=== PATIENT | female | born 1970 | race Caucasian/White ===

== ENCOUNTER 2018-05-19 19:06 | Emergency (ER) | payer OTHER ==
[2018-05-19] MEDS ORDERED: SODIUM CHLORIDE 1,000 ML IV STA (19:42)
[2018-05-19 19:43] VITALS: BMI 23.3
[2018-05-19] MEDS ORDERED: ONDANSETRON 4 MG/2 ML VIAL IVPUSH ONE (19:45)
--- NOTE | 2018-05-19 19:45 | PDOC ---
Rapid Medical Evaluation Chief Complaint: Pain, Acute Time Seen by Provider: 05/19/18 19:39 Medical Evaluation: Allergies Allergy/AdvReac Type Severity Reaction Status Date / Time No Known Allergies Allergy Verified 06/14/17 19:10 05/19/18 19:40 c/o RLQ pain x 3 days today pain is worse with nausea, diarrhea several episodes. PE: patient alert ox3. RLQ tenderness A: RLQ abdominal pain P: labs Patient to the ER for further management Discharge Disposition - Diagnosis Right lower quadrant abdominal pain - Referrals Referrals: Poonam Benedict MD [Primary Care Provider] - - Patient Instructions - Post Discharge Activity
--- NOTE | 2018-05-19 19:53 | PDOC ---
History of Present Illness - General Chief Complaint: Pain Stated Complaint: ABD PAIN Time Seen by Provider: 05/19/18 19:39 - History of Present Illness Initial Comments: 48 year old with no PMH presenting with diarrhea, right lower quadrant abdominal pain, and chills for the past three days. States that she has felt a twisting cramping right lower quadrant pain then began to have post-prandial pain with frequent watery stools. Denies fevers, but has had chills. Denies vomiting but has had some mild nausea. Her abdominal surgical history includes a hernia repair a few years prior. Denies any vaginal discharge, he,aturia, flank pain, or other symptoms. She denies any chest pain, cough, headache, recent travel, or other symptoms. 05/19/18 20:01 Past History - Past Medical History Allergies/Adverse Reactions: Allergies Allergy/AdvReac Type Severity Reaction Status Date / Time No Known Allergies Allergy Verified 06/14/17 19:10 Home Medications: Ambulatory Orders NK [No Known Home Medication] 06/14/17 COPD: No - Immunization History Immunization Up to Date: Yes - Suicide/Smoking/Psychosocial Hx Smoking History: Never smoked Hx Alcohol Use: No Substance Use Type: None Review of Systems - Review of Systems Constitutional: No: Chills, Diaphoresis, Fever HEENTM: No: Eye Pain, Blurred Vision, Tearing Respiratory: No: Cough, Shortness of Breath, SOB with Exertion, Wheezing Cardiac (ROS): No: Edema, Irregular Heart Rate ABD/GI: Yes: Diarrhea, Nausea, Vomiting : No: Dysuria, Discharge, Frequency Musculoskeletal: No: Joint Pain Integumentary: No: Bruising, Change in Color, Erythema, Flushing, Lesions Neurological: No: Headache, Numbness, Paresthesia, Tingling, Tremors, Weakness Psychiatric: No: Anxiety, Depression Hematologic/Lymphatic: No: Anemia, Blood Clots, Easy Bleeding *Physical Exam - Vital Signs Last Vital Signs Temp Pulse Resp BP Pulse Ox 98 F 61 18 126/78 100 05/19/18 19:40 05/19/18 19:40 05/19/18 19:40 05/19/18 19:40 05/19/18 19:40 - Physical Exam General Appearance: Yes: Nourished, Appropriately Dressed. No: Apparent Distress HEENT: positive: EOMI, LIZABETH, Normal ENT Inspection, Normal Voice Neck: positive: Trachea midline, Normal Thyroid, Supple. negative: Tender, Rigid Respiratory/Chest: positive: Lungs Clear, Normal Breath Sounds. negative: Chest Tender, Respiratory Distress, Accessory Muscle Use Cardiovascular: positive: Regular Rhythm, Regular Rate Female Pelvic Exam: positive: normal external exam, cervical os closed, normal adnexa, normal size ovaries, adnexal tenderness (right adnexal tenderness), vaginal bleeding (minor vaginal bleeding from the cervix). negative: CMT, discharge Gastrointestinal/Abdominal: positive: Normal Bowel Sounds, Flat, Soft. negative : Tender Lymphatic: negative: Adenopathy, Tenderness Musculoskeletal: positive: Normal Inspection. negative: Decreased Range of Motion Extremity: positive: Normal Capillary Refill, Normal Inspection, Normal Range of Motion. negative: Tender Integumentary: positive: Normal Color, Dry, Warm Neurologic: positive: cop examiner II-XII NML intact, Fully Oriented, Alert, Normal Mood/ Affect, Normal Response, Motor Strength 12/10 ED Treatment Course - LABORATORY CBC & Chemistry Diagram: 05/19/18 19:56 05/19/18 19:56 Medical Decision Making - Medical Decision Making 48 year old with some right adnexal tenderness, nausea, vomiting, and runny stool. Patent denies fevers, chills, and is tolerating PO. Pain resolved with tylenol and will follow up with OBGyn. This may be perimenstrual pains. Less likely apendicitis as pain is in the right adnexal and not RLQ. 05/19/18 23:51 *DC/Admit/Observation/Transfer Diagnosis at time of Disposition: Right lower quadrant abdominal pain - Discharge Dispostion Disposition: HOME Condition at time of disposition: Improved Decision to Admit order: No - Referrals Referrals: Poonam Benedict MD [Primary Care Provider] - Jadiel Santacruz MD [Staff Physician] - - Patient Instructions Printed Discharge Instructions: DI for Dysmenorrhea, DI for Abdominal Pain- Adult Additional Instructions: Please use Tylenol and advil for the pain. Please follow up with your OBGyn or Dr. Santacruz if you do not have one. Please return to the ED if you have new or worsening symptoms. - Post Discharge Activity
[2018-05-19] MEDS ORDERED: ONDANSETRON 4 MG/2 ML VIAL ONE (19:59)
[2018-05-19 20:06] LABS: BASO % 0.8 % (0-2.0); EOS % 6.6 % (0-4.5); HEMATOCRIT 38.7 % (32.4-45.2); HEMOGLOBIN 13.3 GM/dL (10.7-15.3); LYMPH % 32.2 % (8-40); MCHC 34.3 g/dl (32.0-36.0); MEAN CELL VOLUME 87.5 fl (80-96); MEAN PLT VOLUME 10.1 fl (7.5-11.1); MONO % 5.7 % (3.8-10.2); NEUT % 54.7 % (42.8-82.8); PLATELET COUNT 181 K/MM3 (134-434); RBC 4.42 M/mm3 (3.60-5.2); WHITE BLOOD COUNT 6.7 K/mm3 (4.0-10.0)
[2018-05-19 20:42] LABS: ALBUMIN 3.8 g/dl (3.4-5.0); ALK PHOS 47 U/L (45-117); ANION GAP 5 MMOL/L (8-16); BILIRUBIN,TOTAL 1.3 mg/dL (0.2-1); BLOOD UREA NITROGEN 12 mg/dL (7-18); CALCIUM 8.9 mg/dL (8.5-10.1); CHLORIDE 108 mmol/L (98-107); CO2 26 mmol/L (21-32); CREATININE 0.4 mg/dL (0.55-1.3); GLUCOSE,RANDOM 81 mg/dL (74-106); LIPASE 129 U/L (73-393); POTASSIUM 3.6 mmol/L (3.5-5.1); SGOT/AST 10 U/L (15-37); SGPT/ALT 11 U/L (13-61); SODIUM 139 mmol/L (136-145); TOT PROT 6.5 g/dl (6.4-8.2)
[2018-05-19 20:42] LABS: URINE APPEARANCE CLEAR; URINE BILIRUBIN NEGATIVE (<2.0 mg/dL); URINE COLOR YELLOW; URINE GLUCOSE (UA) NEGATIVE (NEGATIVE); URINE KETONE TRACE (NEGATIVE); URINE LEUK ESTERASE NEGATIVE (NEGATIVE); URINE NITRITE NEGATIVE (NEGATIVE); URINE PROTEIN NEGATIVE (NEGATIVE); URINE UROBILINOGEN NEGATIVE mg/dL (0.2-1.0)
[2018-05-19 20:58] LABS: EPI CELLS RARE /HPF (FEW); URINE BACTERIA RARE /hpf (NONE SEEN); URINE MUCUS MANY
[2018-05-19] MEDS ORDERED: ACETAMINOPHEN 500 MG TABLET (FP) PO ONE (21:56)
--- NOTE | 2018-05-19 22:11 | PDOC ---
Attending Attestation - HPI HPI: This patient is a 48 year old female who presents with 3 days of RLQ pain. She also reports nausea, diarrhea (past 2 days), chills, and slight headache as well as vomit (1x) back pain, and abdominal pressure. She decribes her abdominal pain as a tightness in her intestines. She states her LMP will be 1 month ago in 3 days. She states she is perimenopausal. Denies sick contacts. Denies heavy lifting. Surgical Hx: hernia repair. PCP: Poonam Benedict <Susan Mccormick - Last Filed: 05/20/18 00:20> - Resident Resident Name: Dianna Johnson - ED Attending Attestation I have performed the following: I have examined & evaluated the patient, The case was reviewed & discussed with the resident, I agree w/resident's findings & plan - Physicial Exam PE: 05/21/18 01:24 Pt has no abd tenderness; mininmal tenderness over her existing mesh. She has no rebound and no guarding. Rest of exam normal. Agree with resident; he will document the exam. - Medical Decision Making 05/19/18 23:54 Pt comes with RLQ pain; she has a hx of a Right femoral hernia repair. I can feel the mesh in place and she has mild tenderness over there, but no bulge and no mass. She has no rebound or guarding and she has no flank pain. Labs normal. UA normal; pt hydrated and sono of her ovaries is normal. Pt has a small fibroid that is 2.7cm. Pt is concerned that it may ne her fibroid that is causing the pain. <Lisa Walker - Last Filed: 05/21/18 01:25>
[2018-05-19] MEDS ORDERED: ACETAMINOPHEN 325 MG TABLET (FP) ONE (22:37)
[2018-05-19 22:42] LABS: AMYLASE 30 U/L (25-115)
[2018-05-20 00:13] VITALS: BP 118/71; PULSE 69; TEMP 98.2
== END 2018-05-20 00:13 | disposition home or self-care (01) ==
LOC: JER 19:06
PROC: 3E0337Z Introduction of Electrolytic and Water Balance Substance into Peripheral Vein, Percutaneous Approach (ICD-10-PCS; principal; 2018-05-19)
PROC: 3E033GC Introduction of Other Therapeutic Substance into Peripheral Vein, Percutaneous Approach (ICD-10-PCS; 2018-05-19)
DX: R10.31 Right lower quadrant pain (principal); D25.9 Leiomyoma of uterus, unspecified
CPT/HCPCS: 36415; 76830-TC; 80053; 81003; 81015; 82150; 83690; 84703; 85025; 87086; 96361; 96374; 99283-25; J7030

== ENCOUNTER 2021-03-31 19:02 | Emergency (ER) | payer OTHER ==
[2021-03-31 19:26] VITALS: BP 121/75; PULSE 74; TEMP 98; BMI 23.3
[2021-03-31 21:19] LABS: EPI CELLS >36 /uL (0-25.1); HYALINE CASTS 3 /uL (0-3.1); URINE APPEARANCE CLOUDY; URINE BACTERIA 1007 /uL (0-1359); URINE BILIRUBIN NEGATIVE (NEGATIVE); URINE COLOR YELLOW; URINE GLUCOSE (UA) NEGATIVE (NEGATIVE); URINE KETONE TRACE (NEGATIVE); URINE LEUK ESTERASE NEGATIVE (NEGATIVE); URINE NITRITE NEGATIVE (NEGATIVE); URINE PROTEIN TRACE (NEGATIVE); URINE RBC 16 /uL (0-23.9); URINE UROBILINOGEN 0.2 mg/dL (0.2-1.0); URINE WBC 35 /uL (0-25.8)
[2021-03-31] MEDS ORDERED: ACETAMINOPHEN 1000 MG/100 ML VIAL (NON FORMULARY) IVPB ONE (21:39)
[2021-03-31] MEDS ORDERED: ACETAMINOPHEN INJECTION 100 ML IVPB ONE (21:42)
[2021-03-31 22:05] LABS: BASO % 0.5 % (0-2.0); EOS % 4.7 % (0-4.5); HEMATOCRIT 39.1 % (32.4-45.2); HEMOGLOBIN 13.7 GM/dL (10.7-15.3); LYMPH % 35.6 % (8-40); MCH 31.2 pg (25.7-33.7); MEAN CELL VOLUME 89.1 fl (80-96); MEAN PLT VOLUME 9.8 fl (7.5-11.1); MONO % 5.8 % (3.8-10.2); NEUT % 53.4 % (42.8-82.8); PLATELET COUNT 216 10^3/uL (134-434); RBC 4.39 M/mm3 (3.60-5.2); RDW 13.2 % (11.6-15.6); WHITE BLOOD COUNT 6.6 K/mm3 (4.0-10.0)
[2021-03-31 22:13] LABS: ALBUMIN 3.3 g/dl (3.4-5.0); BLOOD UREA NITROGEN 14.5 mg/dL (7-18); CALCIUM 8.5 mg/dL (8.5-10.1)
[2021-03-31 22:17] LABS: CREATININE 0.7 mg/dL (0.55-1.3)
[2021-03-31 22:18] LABS: BILIRUBIN,TOTAL 0.3 mg/dL (0.2-1); TOT PROT 6.9 g/dl (6.4-8.2)
== END 2021-04-01 00:06 | disposition home or self-care (01) ==
LOC: JER 19:02
PROC: 3E033GC Introduction of Other Therapeutic Substance into Peripheral Vein, Percutaneous Approach (ICD-10-PCS; principal; 2021-03-31)
DX: N12 Tubulo-interstitial nephritis, not specified as acute or chronic (principal)
CPT/HCPCS: 36415; 74177-TC; 80053; 81003; 85025; 87086; 99285-25; J0131; Q9967